=== PATIENT | female | born 1975 | race Two or more races ===

== ENCOUNTER 2016-10-31 13:21 | Emergency (ER) | payer MEDICAID ==
[~2016-10-31] VITALS: Ht 162.6 cm; Wt 69.4 kg
[2016-10-31 16:23] VITALS: BP 133/76
[2016-10-31] MEDS ORDERED: KETOROLAC TROMETH 60MG/2ML VIAL IM ONE (16:30)
== END 2016-10-31 16:42 | disposition home or self-care (01) ==
LOC: ER 13:21
DX: M79.672 Pain in left foot (principal); M19.90 Unspecified osteoarthritis, unspecified site; F12.10 Cannabis abuse, uncomplicated; Z90.710 Acquired absence of both cervix and uterus; Z87.891 Personal history of nicotine dependence; Z88.6 Allergy status to analgesic agent
CPT/HCPCS: 93971; 96372; 99284; J1885

== ENCOUNTER 2016-11-06 11:57 | Emergency (ER) | payer MEDICAID ==
[~2016-11-06] VITALS: Ht 162.6 cm; Wt 55.8 kg
[2016-11-06 12:24] VITALS: BP 117/60
== END 2016-11-06 14:21 | disposition home or self-care (01) ==
LOC: ER 11:57
DX: G89.29 Other chronic pain (principal); M79.671 Pain in right foot; M19.90 Unspecified osteoarthritis, unspecified site; F12.10 Cannabis abuse, uncomplicated; Z88.6 Allergy status to analgesic agent; Z87.891 Personal history of nicotine dependence

== ENCOUNTER 2016-11-07 15:03 | Observation (INO) | payer MEDICAID ==
[~2016-11-07] VITALS: Ht 162.6 cm; Wt 55.8 kg
[2016-11-07] MEDS ORDERED: SODIUM CHLORIDE 0.9% 1,000 ML IV ONE (16:05)
[2016-11-07 16:36] LABS: Basophils # (auto) 0 uL; Basophils % (auto) 0.4 % (0.0-2.0); Eosinophils # (auto) 0.2 uL; Eosinophils % (auto) 2.2 % (0.0-7.0); Hematocrit 35.6 % (36.0-46.0); Hemoglobin 12.1 g/dL (12.2-16.2); Lymphocytes # (auto) 1.7 uL; Mean Corpuscular Hemoglobin 29.9 pg (28.0-32.0); Mean Corpuscular Hgb Conc. 33.9 g/dL (32.0-36.0); Mean Corpuscular Volume 88.1 fL (80.0-100.0); Mean Platelet Volume 8.4 fL (7.4-10.4); Monocytes # (auto) 0.5 uL; Monocytes % (auto) 7.2 % (0.0-12.0); Neutrophils # (auto) 4.6 uL; Neutrophils % (auto) 66.2 % (37.0-80.0); Platelet Count (auto) 282 10^3/uL (140-450); Red Cell Distribution Width 14.5 % (11.6-16.0)
[2016-11-07 16:55] LABS: Albumin 4.5 g/dL (3.4-5.0); Anion Gap 5 (5-15); Aspartate Aminotransferase 38 U/L (15-37); BUN/Creatinine Ratio 13.3; Blood Urea Nitrogen 15 mg/dL (7-18); Calcium 8.5 mg/dL (8.5-10.1); Carbon Dioxide 28 mmol/L (21-32); Chloride 103 mmol/L (98-107); GFR African American 69 mL/min; GFR Non-African American 57 mL/min; Glucose 84 mg/dL (74-106); Potassium 3.6 mmol/L (3.5-5.1); Sodium 136 mmol/L (136-145)
[2016-11-07 16:58] LABS: Alkaline Phosphatase 91 U/L (45-117); Bilirubin, Total 0.6 mg/dL (0.2-1.0); Total Protein 7.4 g/dL (6.4-8.2)
[2016-11-07 17:03] LABS: Salicylate 1.7 mg/dL (2.8-20.0)
[2016-11-07 17:59] LABS: Urine RBC None Seen /hpf (0 - 4)
[2016-11-07 18:12] LABS: Urine Bilirubin Negative (Negative); Urine Blood Negative /uL (Negative); Urine Color Yellow (Yellow); Urine Glucose Normal (Normal); Urine Ketone Negative (Negative); Urine Nitrite Negative (Negative); Urine Squamous Epithelial Cell FEW /hpf (<5); Urine Urobilinogen Normal (Negative)
[2016-11-07] MEDS ORDERED: HYDROcodone-ACET 10/325MG TAB PO ONE (20:00)
[2016-11-08] MEDS ORDERED: LORazepam 0.5 MG TAB PO ONE ×2 (00:30→11:30)
[2016-11-08] MEDS ORDERED: traZODone HCL 50 MG TAB PO ONE (00:30)
[2016-11-08] MEDS ORDERED: TEMA15CA91 PO (03:22)
[2016-11-08] MEDS ORDERED: HYDR50CA2 PO (03:22)
[2016-11-08] MEDS ORDERED: LORA1TAB12 PO (03:22)
[2016-11-08] MEDS ORDERED: TRAZ150T79 PO (03:22)
[2016-11-08] MEDS ORDERED: NAP500T PO (03:22)
[2016-11-08] MEDS ORDERED: DULO20CA PO (03:27)
[2016-11-08] MEDS ORDERED: LITH300T11 PO (03:27)
[2016-11-08] MEDS ORDERED: DIAZ2TAB PO (03:27)
[2016-11-08] MEDS ORDERED: NOR5T PO (06:50)
[2016-11-08] MEDS ORDERED: AMOX500C2 PO (07:03)
[2016-11-08] MEDS ORDERED: LIDO5DIS21 TOP (07:09)
[2016-11-08] MEDS ORDERED: LIDOCAINE 5% TOPICAL PATCH TOP ONE (14:30)
[2016-11-08 19:00] VITALS: BP 108/62
[2016-11-08] MEDS ORDERED: traZODone HCL 50 MG TAB PO SCH (22:00)
[2016-11-08] MEDS ORDERED: LITHIUM CARBONATE 300 MG TAB PO SCH (22:00)
[2016-11-08] MEDS ORDERED: DIAZEPAM 5 MG TAB PO SCH (22:00)
== END 2016-11-08 20:23 | disposition home or self-care (01) | DRG 753 ==
LOC: ER 15:03 → OVERFLOW 15:04 → UNDOADMOB 15:04 → OVERFLOW 16:06 → ER 11-08 20:23 → UNDODISOB 11-08 20:23
PROVIDERS: ADMIT Emergency Medicine; ATTEND Emergency Medicine
DX: F31.32 Bipolar disorder, current episode depressed, moderate (principal); Z87.891 Personal history of nicotine dependence
CPT/HCPCS: 36415; 71020; 80053; 80178; 80320; 80329; 81001; 83735; 84443; 85025; 93005; 96360; 99285; G0378; G0434; J7030